=== PATIENT | female | born 1995 | race African-American/Black ===

== ENCOUNTER 2019-07-23 02:22 | Emergency (ER) | payer SELFPAY | END 2019-07-23 03:00 | disposition left against medical advice (07) | LOC: ERS 02:22 | DX: Z53.21 Procedure and treatment not carried out due to patient leaving prior to being seen by health care provider (principal) ==

== ENCOUNTER 2020-07-12 13:40 | Emergency (ER) | payer SELFPAY ==
--- NOTE | 2020-07-12 14:49 | ULT ---
EXAM: Pelvic ultrasound HISTORY: Pelvic pain and positive test COMPARISON: 01/09/2015 TECHNIQUE: Multiple grayscale and color Doppler images were obtained in a transabdominal and transvag inal pelvic ultrasound. Spectral analysis of the Doppler waveforms of the ovaries were performed. FINDINGS: CERVIX: No evidence of nabothian cysts. UTERUS: 1.8 cm fibroid posteriorly. No intrauterine identified ENDOMETRIAL STRIPE: 14 mm. Small amount of free fluid is seen in the pelvis. No ectopic is identified. RIGHT OVARY: Normal flow without focal mass. LEFT OVARY: Normal flow without focal mass. IMPRESSION: 1. No intrauterine or ectopic identified. 2. Uterine fibroid
[2020-07-15 15:47] LABS: Chlamydia by PCR Not Detected (NotDetected); GC by PCR Not Detected (NotDetected)
== END 2020-07-12 16:35 | disposition home or self-care (01) ==
LOC: ERS 13:40
DX: O99.891 Other specified diseases and conditions complicating pregnancy (principal); R10.2 Pelvic and perineal pain; O99.351 Diseases of the nervous system complicating pregnancy, first trimester; G47.00 Insomnia, unspecified; O99.331 Smoking (tobacco) complicating pregnancy, first trimester; F17.210 Nicotine dependence, cigarettes, uncomplicated
CPT/HCPCS: 36415; 76856; 86900; 86901; 87480; 87491; 87510; 87591; 87660

== ENCOUNTER 2020-08-25 16:55 | Emergency (ER) | payer MEDICAID, OTHER ==
[2020-08-25] MEDS ORDERED: Boostrix 0.5 ML (Tdap) VIAL ONE (17:31)
--- NOTE | 2020-08-25 17:49 | RAD ---
LEFT FOOT THREE VIEWS: 08/25/20 HISTORY: Puncture wound. Patient stepped on a screw today. FINDINGS: No radiopaque foreign body. Lisfranc alignment is maintained and the joint spaces are preserved. No f racture. IMPRESSION: No fracture or radiopaque foreign body. POS: [facility]
== END 2020-08-25 18:15 | disposition home or self-care (01) ==
LOC: ERS 16:55
DX: O9A.211 Injury, poisoning and certain other consequences of external causes complicating pregnancy, first trimester (principal); S91.332A Puncture wound without foreign body, left foot, initial encounter; O99.511 Diseases of the respiratory system complicating pregnancy, first trimester; J45.909 Unspecified asthma, uncomplicated; O99.351 Diseases of the nervous system complicating pregnancy, first trimester; G47.00 Insomnia, unspecified; O99.331 Smoking (tobacco) complicating pregnancy, first trimester; F17.210 Nicotine dependence, cigarettes, uncomplicated; Z3A.11 11 weeks gestation of pregnancy; Z23 Encounter for immunization; W45.0XXA Nail entering through skin, initial encounter
CPT/HCPCS: 90471; 90715

== ENCOUNTER 2020-11-02 16:11 | Outpatient (CLI) | payer OTHER | END 2020-11-02 16:12 | disposition home or self-care (01) | LOC: BICULT 16:11 | PROVIDERS: ATTEND Family Medicine | DX: Z34.02 Encounter for supervision of normal first pregnancy, second trimester (principal); Z3A.20 20 weeks gestation of pregnancy | CPT/HCPCS: 76805 ==

== ENCOUNTER 2022-11-24 13:39 | Outpatient (CLI) | payer OTHER | END 2022-11-24 13:40 | disposition home or self-care (01) | LOC: BICULT 13:39 | PROVIDERS: ATTEND Family Medicine | DX: O09.892 Supervision of other high risk pregnancies, second trimester (principal); Z3A.23 23 weeks gestation of pregnancy | CPT/HCPCS: 76805 ==